=== PATIENT | male | born 1980 | race Caucasian/White ===

== ENCOUNTER 2022-05-06 14:01 | Emergency (ER) | payer OTHER, MEDICAID ==
[~2022-05-06] VITALS: Ht 182.9 cm; Wt 155.1 kg
[2022-05-06 14:18] VITALS: BP 128/72
--- NOTE | 2022-05-06 16:10 | NUR ---
pt being evaluated by riki trent
--- NOTE | 2022-05-06 16:50 | NUR ---
42 y/o male, c/o right ear pain, states ear has been feeling plugged for 1 week. pt states when he yawns he feels slightly better. denies bleeding, discharge, trauma or injry to area. denies fever, sore throat, cough, or sob. pmh: prediabetic nka
[2022-05-06] MEDS ORDERED: LORA10TA19 PO (16:56)
[2022-05-06] MEDS ORDERED: DIPH25TA53 PO (16:56)
[2022-05-06 17:05] VITALS: BP 128/72
--- NOTE | 2022-05-06 17:06 | NUR ---
pt was dx with diphenhydramine, loratidine. pt left without dx paperwork.
== END 2022-05-06 17:06 | disposition home or self-care (01) ==
LOC: MED 14:01
DX: H92.01 Otalgia, right ear (principal); Z79.899 Other long term (current) drug therapy
CPT/HCPCS: 99282